=== PATIENT | male | born 1955 | race Hispanic/Latino ===

== ENCOUNTER 2020-10-04 07:20 | Outpatient (CLI) | payer MEDICARE, BC ==
[2020-10-04 17:58] LABS: #Basophils 0.1 10x3/uL (0.0-0.2); #Eosinphils 0.3 10x3/uL (0.0-0.5); #Monocytes 0.5 10x3/uL (0.0-1.1); #Neutrophils 1.4 10x3/uL (1.5-8.4); %Basophils 2.3 % (0.0-2.0); %Eosinophils 8.4 % (0.0-6.0); %Lymphocytes 34.4 % (18.0-47.0); %Monocytes 13.3 % (0.0-10.0); Hemoglobin 12.1 g/dL (14.0-18.0); Mean Corpuscular Hemoglobin 34.4 PG (27.0-33.0); Mean Corpuscular Volume 101.1 fl (80.0-100.0); Mean Platelet Volume 9.5 fl (7.4-10.4); Platelet Count 226 10x3/uL (130-400); RBC Distribution Width 12.5 % (11.5-14.5); Red Blood Cell (RBC) Count 3.52 10x6/uL (4.40-5.80); White Blood Cell (WBC) Count 3.5 10x3/uL (4.5-11.0)
[2020-10-04 18:06] LABS: Anion Gap 19 mmol/L (10-20); BUN (Urea Nitrogen) Less than 4 mg/dL (8.4-25.7); Calc. Creatinine Clearance 0 mL/min (70-130); Calcium 8.3 mg/dL (7.8-10.44); Carbon Dioxide 21 mmol/L (23-31); Chloride 100 mmol/L (98-107); Estimated GFR-MDRD Greater than 90; Glucose 86 mg/dL (80-115); Potassium 4.3 mmol/L (3.5-5.1); Sodium 136 mmol/L (136-145)
[2020-10-05 14:48] LABS: SARS-CoV-2 MS2 Positive; SARS-CoV-2 N Gene Negative; SARS-CoV-2 S Gene Negative; SARS-CoV-2 by NAA Not Detected (NotDetected); SARS-CoV-2 orf1ab Negative
== END 2020-10-04 07:21 | disposition home or self-care (01) ==
LOC: LABBT 07:20
PROVIDERS: ATTEND Thoracic Surgery (Cardiothoracic Vascular Surgery)
DX: Z01.812 Encounter for preprocedural laboratory examination (principal); Z20.828 Contact with and (suspected) exposure to other viral communicable diseases; I73.9 Peripheral vascular disease, unspecified
CPT/HCPCS: 80048; 85025; U0003; 87635

== ENCOUNTER 2020-10-09 06:07 | Day surgery (SDC) | payer MEDICARE, BC ==
[2020-10-08 09:12] VITALS: BMI 16.5
[2020-10-09] MEDS ORDERED: Midazolam HCl 2 mg/2 ml Vial ONE (07:03)
[2020-10-09] MEDS ORDERED: Fentanyl 100 MCG/2 ML VIAL ONE ×2 (07:03→09:17)
[2020-10-09] MEDS ORDERED: Heparin 10,000 UNITS/ 10 ML VIAL ONE (07:17)
[2020-10-09] MEDS ORDERED: Protamine Sulfate 50 MG/5 ML VIAL ONE (07:40)
--- NOTE | 2020-10-09 08:39 | OP ---
DATE OF PROCEDURE: 10/09/2020 PREOPERATIVE DIAGNOSIS: Peripheral vascular disease with left leg rest pain. POSTOPERATIVE DIAGNOSIS: Peripheral vascular disease with left leg rest pain. PROCEDURES PERFORMED: 1. Ultrasound-guided right femoral artery access. 2. Abdominal aortogram x2. 3. Left external iliac artery angiogram with left leg runoff. 4. Left superficial femoral artery angiogram with runoff. 5. Left popliteal artery angiogram with runoff. 6. Right external iliac artery angiogram with runoff. 7. ProGlide right femoral artery closure. ANESTHESIA: 1% lidocaine for local with 2 mg Versed and 50 mcg fentanyl given for sedation. HEPARIN: 5000 units. PROTAMINE: 25 mg at completion. DESCRIPTION OF PROCEDURE: After consent was obtained, the patient was brought to the laborer bituminous paving, placed in supine position on laborer bituminous paving table. Appropriate central line and monitors were placed. IV sedation was begun. Groins were prepped and draped in usual sterile fashion. Right groin was anesthetized with 1% lidocaine. Using ultrasound guidance, the right common femoral artery was accessed and a micropuncture sheath was placed. Sheath was exchanged for a 5-[place] sheath over [employer] guidewire. Contra catheter was passed into the upper abdominal aorta. Aortogram was performed showing no aortic or proximal iliac artery luminal encroachment. Contra catheter was guided over the aortic bifurcation. The catheter was seated on the bifurcation and a second aortogram was performed. This showed great flow through the iliacs. Iliacs were calcified, but there were no flow-limiting lesions. Contra catheter was then guided down into the external iliac artery on the left. Digital angiography was used to latonya contrast from groin to foot. Common femoral, profunda femoris, and proximal superficial femoral arteries were all free of obstructive disease. There were numerous areas of calcification and occlusion of the left superficial femoral artery. An angled [place] catheter was guided down into the superficial femoral artery at its midportion. Hand-injected arteriogram was performed illuminating the distal areas. An angled [place] catheter and Glidewire traverse the initial area of occlusion. I was not able to get any further with a wire. Another angiogram was performed with tip of catheter in the popliteal artery. The contrast was then chased with subtraction angiography with multiple shots. Popliteal artery was occluded in multiple areas. At the level of tibioperoneal trunk, the posterior tibial and peroneal arteries were occluded with no runoff. The anterior tibial artery was occluded at its proximal portion with an anterior tibial artery that showed very late in the injection with minimal collaterals down at the level of the ankle. At this point, I did not feel any further intervention was indicated. The sheath was brought back over the aortic bifurcation into the external iliac artery on the right. Digital angiography was then used to latonya contrast from groin to foot. The right side was very similar to the left-sided anatomy. There was multilevel occlusion and stenoses of the superficial and popliteal arteries with minimal runoff to the foot. ProGlide was then used to close the right groin over [place] wire. There was good hemostasis. The patient was transferred out to the recovery area to be discharged to home later today. Unfortunately, I would consider this is a situation of nonreconstructible peripheral vascular disease as he has no distal runoff or targets for peripheral bypass. Job ID: [id number]
[2020-10-09] MEDS ORDERED: Iopamidol 370 76% 50 ML VIAL FS ONE (08:50)
== END 2020-10-09 10:23 | disposition home or self-care (01) ==
LOC: CCL 06:07
PROVIDERS: ATTEND Thoracic Surgery (Cardiothoracic Vascular Surgery)
PROC: B41G1ZZ Fluoroscopy of Left Lower Extremity Arteries using Low Osmolar Contrast (ICD-10-PCS; principal; 2020-10-09)
PROC: B41F1ZZ Fluoroscopy of Right Lower Extremity Arteries using Low Osmolar Contrast (ICD-10-PCS; 2020-10-09)
DX: I70.222 Atherosclerosis of native arteries of extremities with rest pain, left leg (principal); I70.201 Unspecified atherosclerosis of native arteries of extremities, right leg; R22.2 Localized swelling, mass and lump, trunk; I10 Essential (primary) hypertension; F17.210 Nicotine dependence, cigarettes, uncomplicated; Z79.899 Other long term (current) drug therapy
CPT/HCPCS: 36247; 75625; 75716; 76942; 99152; 99153; J1644; J2250; J2720; J3010; Q9967